=== PATIENT | female | born 1965 | race Caucasian/White ===

== ENCOUNTER 2020-03-06 08:01 | Outpatient (CLI) | payer BC, SELFPAY ==
[2020-03-06 08:32] LABS: Basophils Percent Auto 0.5 % (0.2-1.2); Eosinophils Absolute Auto 0.1 K/mm3 (0-0.3); Eosinophils Percent Auto 2.1 % (0-4.4); Hematocrit 44.4 % (37.0-47.0); Hemoglobin 15.2 g/dL (12.0-15.0); Immature Granulocyte Absolute 0.02 K/mm3 (0.00-0.031); Immature Granulocyte Percent A 0.4 % (0-0.5); Lymphocytes Absolute Auto 1.66 K/mm3 (0.9-3.2); Lymphocytes Percent Auto 29.1 % (18.3-44.2); Mean Corpuscular HGB Conc 34.2 g/dl (32-36); Mean Corpuscular Hemoglobin 29.2 pg (26-34); Mean Corpuscular Volume 85.2 fl (80-100); Mean Platelet Volume 9.7 fl (7.4-10.4); Monocytes Absolute Auto 0.4 K/mm3 (0.1-0.6); Neutrophils Absolute Auto 3.5 K/mm3 (1.3-6.7); Neutrophils Percent Auto 60.9 % (45.5-73.1); Platelet Count Result 184 k/mm3 (150-375); Red Blood Count 5.21 M/mm3 (4.2-5.4); Red Cell Distribution Width 12.1 % (11.5-14.5); White Blood Count 5.7 K/mm3 (4.5-10.0)
[2020-03-06 12:24] LABS: Anion Gap 6 mmol/L (8-16); Blood Urea Nitrogen 11 mg/dL (7-17); Calcium 11.2 mg/dL (8.4-10.2); Carbon Dioxide 25 mmol/L (22-30); Chloride 106 mmol/L (98-107); Cholesterol 200 mg/dL (0-200); Estimated Glomerular Filt Rate > 60; Glucose 124 mg/dL (65-105); HDL Direct 71 mg/dL; Potassium 4.7 mmol/L (3.4-5.0); Sodium 137 mmol/L (137-145); Triglycerides 155 mg/dL (<150)
[2020-03-06 12:35] LABS: LDL Cholesterol Direct 97 mg/dL; Parathyroid Intact 124.7 pg/mL (7.5-53.5)
[2020-03-10 04:06] LABS: Ionized Calcium 6.3 mg/dL (4.8-5.6)
== END 2020-03-06 08:02 | disposition home or self-care (01) ==
LOC: ANHLAB 08:03
PROVIDERS: PCP Family Medicine; Visit Provider Family Medicine
DX: E34.9 Endocrine disorder, unspecified (principal); F41.9 Anxiety disorder, unspecified; Z13.220 Encounter for screening for lipoid disorders
CPT/HCPCS: 36415; 80048; 80061; 82330; 83970; 84443; 85025

== ENCOUNTER 2020-04-02 06:36 | Outpatient (CLI) | payer BC, SELFPAY ==
--- NOTE | ~2020-04-02 | NM_ITS ---
EXAMINATION: NM parathyroid imaging w spect DATE: 04/02/2020 09:39 INDICATION: Unspecified elevated thyroid hormone level TECHNIQUE: 20.3 mCi Tc99m sestamibi (Cardiolite) was administered by intravenous route. Anterior imag es of the neck were obtained at 10 minutes and 2 hours. COMPARISON: 11/09/2017 FINDINGS: There is no focus of persistent activity in the area of the thyroid or mediastinum to suggest parathy roid adenoma. IMPRESSION: 1: Normal study. Reviewed, dictated and finalized at location A. IMPRESSION: 1: Normal study.
== END 2020-04-02 06:37 | disposition home or self-care (01) ==
LOC: ANHIMG 06:38
PROVIDERS: PCP Family Medicine; Visit Provider Family Medicine
DX: E34.9 Endocrine disorder, unspecified (principal); E83.52 Hypercalcemia
CPT/HCPCS: 78071; A9500

== ENCOUNTER 2020-05-08 07:29 | Outpatient (CLI) | payer BC, SELFPAY ==
--- NOTE | ~2020-05-08 | DEXA_ITS ---
Bone Density Report Name: Melissa Gracia Age: 55 Sex: Female Ethnicity: White Date of : 1965 Indication: osteopenia; hyperparathyroidism; parental hip fracture; cancer; hysterectomy; Referring Provider: PHYSICIAN NOT ON STAFF Study: Bone densitometry was performed. Exam Date: May 08, 2020 Accession number: [id number] Bone Density: Region BMD T-score Z-score Classification AP Spine (L1-L4) 0.868 -1.6 -0.6 Osteopenia Femoral Neck (Left) 0.693 -1.4 -0.4 Osteopenia Total Hip (Left) 0.851 -0.7 -0.1 Normal Total Hip Bilateral Avg 0.854 -0.7 -0.1 Normal Femoral Neck (Right) 0.693 -1.4 -0.4 Osteopenia Total Hip (Right) 0.855 -0.7 -0.1 Normal World Health Organization criteria for BMD impression classify patients as: Normal (T-score at or above -1.0), Osteopenia (T-score between -1.0 and -2.5), or Osteoporosis (T-score at or below -2.5). 10-year Fracture Risk(1): Major Osteoporotic Fracture 12% Hip Fracture 0.4% Reported Risk Factors: [place] (), Neck BMD=0.693, BMI=27.9, parental fracture (1) FRAX(R) Version 3.08. Fracture probability calculated for an untreated patient. Fracture probability may be lower if the patient has received treatment. Previous Exams: Region Exam Age BMD T-score BMD Change BMD Change Date g/cm2 vs Baseline vs Previous AP Spine(L1-L4) 05/08/2020 55 0.868 -1.6 0.022(2.6%) 0.022(2.6%) 10/19/2017 52 0.846 -1.8 Total Hip(Left) 05/08/2020 55 0.851 -0.7 0.031(3.8%)* 0.031(3.8%)* 10/19/2017 52 0.820 -1.0 Total Hip(Right) 05/08/2020 55 0.855 -0.7 0.043(5.3%)* 0.043(5.3%)* 10/19/2017 52 0.811 -1.1 *Denotes significance at 95% confidence level, LSC for AP Spine = 0.022 g/cm2, LSC for Total Hip = 0.027 g/cm2 Clinical Information Provided by Patient: Parent has had a hip fracture Has the following medical conditions: Cancer, Hyperparathyroidism, Hysterectomy Patient maximum height was 66 Menopause Age: 35 No regular weight bearing exercise Drinks caffeinated beverages Onset of menses at age 18 Number of children 3 Impression: The patient has low bone mass, based on the Total Spine T-score. The patient has an estimated ten-year risk of hip fracture of 0.4% and an estimated ten-year risk of major fracture of 12%, based on the WHO FRAX algorithm. The patient has risk factors, including: parental hip fracture. No significant bone loss was observed. Discussion: BONE DENSITY I
== END 2020-05-08 07:30 | disposition home or self-care (01) ==
PROVIDERS: PCP Family Medicine
DX: E55.9 Vitamin D deficiency, unspecified (principal)
CPT/HCPCS: 77080

== ENCOUNTER 2020-05-15 09:23 | Outpatient (CLI) | payer BC, SELFPAY ==
[2020-05-15 11:56] LABS: Vitamin D 25 Hydroxy 34.2 ng/mL
== END 2020-05-15 09:24 | disposition home or self-care (01) ==
PROVIDERS: PCP Family Medicine; Visit Provider Internal Medicine Hematology & Oncology
DX: E83.52 Hypercalcemia (principal)
CPT/HCPCS: 36415; 82306; 83519

== ENCOUNTER 2020-08-06 12:07 | Outpatient (CLI) | payer BC, SELFPAY ==
--- NOTE | ~2020-08-06 | XR_ITS ---
EXAMINATION: XR sacrum coccyx min 2V EXAM DATE: 08/06/2020 12:24 INDICATION: Tailbone pain for one month, no known recent injury. TECHNIQUE: Frontal, inlet, lateral projections of the sacrum and coccyx. There is no prior study fo r comparison. FINDINGS: Sacrum, sacroiliac joints, sacral arcuate lines are intact. There are no acute fractures o r dislocations identified. There is no subcutaneous gas. The soft tissue is unremarkable. There a re no radiopaque foreign bodies. There is mild left sacroiliac joint primary osteoarthritis. IMPRESSION: Mild left SI joint osteoarthritis. Reviewed, dictated and finalized at location B. TION SPECIALIST
== END 2020-08-06 12:08 | disposition home or self-care (01) ==
PROVIDERS: PCP Family Medicine; Visit Provider Family Medicine
DX: M53.3 Sacrococcygeal disorders, not elsewhere classified (principal); M47.898 Other spondylosis, sacral and sacrococcygeal region
CPT/HCPCS: 72220

== ENCOUNTER 2021-01-08 08:37 | Outpatient (CLI) | payer BC, SELFPAY ==
[2021-01-08 10:37] LABS: Anion Gap 6 mmol/L (8-16); Blood Urea Nitrogen 16 mg/dL (7-17); Calcium 10.9 mg/dL (8.4-10.2); Carbon Dioxide 27 mmol/L (22-30); Chloride 108 mmol/L (98-107); Estimated Glomerular Filt Rate > 60; Glucose 113 mg/dL (65-105); Potassium 4.6 mmol/L (3.4-5.0); Sodium 141 mmol/L (137-145)
[2021-01-08 10:59] LABS: Parathyroid Intact 129.8 pg/mL (7.5-53.5)
== END 2021-01-08 08:38 | disposition home or self-care (01) ==
LOC: ANHLAB 08:47
PROVIDERS: PCP Family Medicine; Visit Provider Internal Medicine Hematology & Oncology
DX: E21.3 Hyperparathyroidism, unspecified (principal); R53.83 Other fatigue
CPT/HCPCS: 36415; 80048; 82306; 82330; 83970; 84443

== ENCOUNTER 2021-04-09 14:39 | Outpatient (CLI) | payer BC, SELFPAY ==
--- NOTE | 2021-04-09 16:27 | WPDPFTINT ---
PFT Procedure Performed PFT Procedure Performed Plethysmography (Lung Vol) Diffusing Cap (DLCO) Flow Vol Loop Spirometry w/o Bronchodil PFT Interpretation This is a pulmonary function test with spirometry, plethysmography and diffusing capacity. The test was performed and results interpreted in accordance with the 2019 and 2005 ATS/ERS Task Force guidelines respectively using the Global Lung Function Initiative-2012 reference equations. Patient demonstrated good effort and cooperation. Reproducibility criteria were met. The quality of the spirometry maneuver was Grade C. Of note the patient had difficulty with maximal inspiration on on all testing. Findings: Spirometry: There is decreased maximal expiratory airflow at all lung volumes. The contour of the inspiratory flow tracing is incomplete. The FVC 3.07 L, 86% predicted. The FEV1 is 1.62, 57% predicted. The FEV1: FVC ratio is 53%. Plethysmography: The total lung capacity is 4.31 L, 80% predicted. The functional residual capacity is 3.17 L, 104% predicted. The residual volume is 1.25 L, 63% predicted. Diffusing capacity: The absolute diffusion capacity is 15.2, 66% predicted. The diffusing capacity corrected for alveolar volume is 5.46, 123% predicted. Impression: The patient had difficulty with maximal inspiration on all of the testing which limits the interpretation. Interpreting the best available efforts, there is a moderately severe obstructive abnormality. The lung volumes are normal. The absolute diffusing capacity is mildly decreased and normalizes when corrected for alveolar volume. There are no prior studies for comparison
== END 2021-04-09 14:40 | disposition home or self-care (01) ==
LOC: ANHPFT 14:40
PROVIDERS: PCP Family Medicine; Visit Provider Internal Medicine Cardiovascular Disease
DX: U07.1 COVID-19 (principal); R06.00 Dyspnea, unspecified; R07.89 Other chest pain
CPT/HCPCS: 94375; 94726; 94729

== ENCOUNTER 2021-07-16 12:11 | Outpatient (CLI) | payer BC, SELFPAY ==
--- NOTE | ~2021-07-16 | CT_ITS ---
EXAMINATION: CT diagnostic chest w con DATE: 07/16/2021 12:44 INDICATION: Shortness of breath. Covid infection. History of breast cancer TECHNIQUE: Computed tomography (CT) of the chest was performed with 75 cc Omnipaque 350 intravenous c ontrast. The dose-length product was 154.06 mGy-cm. Automated exposure control and iterative reconstr uction technique were employed. COMPARISON: Chest CT dated 06/09/2018 FINDINGS: Heart size is normal. No thoracic lymphadenopathy. No significant pleural or pericardial ef fusion. There are cholecystectomy clips. Fatty infiltration of the liver. There is a small 2-3 mm fis sural nodule on the right, coronal image 43, likely benign. There is a 2 mm right basilar nodule, unc hanged, coronal image 31. No focal airspace consolidation. No pneumothorax. No endobronchial lesions. There is dependent atelectasis. Mild thoracic spondylosis. No focal lytic or blastic lesions. Thyroi d gland is unremarkable. IMPRESSION: 1. No acute cardiopulmonary disease. Reviewed, dictated and finalized at location A. EWATER MANAGER
[2021-07-16 12:28] LABS: Basophils Percent Auto 0.5 % (0.2-1.2); Eosinophils Absolute Auto 0.1 K/mm3 (0-0.3); Eosinophils Percent Auto 2.1 % (0-4.4); Hematocrit 43.6 % (37.0-47.0); Hemoglobin 14.8 g/dL (12.0-15.0); Immature Granulocyte Absolute 0.01 K/mm3 (0.00-0.031); Immature Granulocyte Percent A 0.2 % (0-0.5); Lymphocytes Absolute Auto 1.66 K/mm3 (0.9-3.2); Lymphocytes Percent Auto 28.4 % (18.3-44.2); Mean Corpuscular HGB Conc 33.9 g/dl (32-36); Mean Corpuscular Hemoglobin 29.5 pg (26-34); Mean Platelet Volume 9.6 fl (7.4-10.4); Monocytes Absolute Auto 0.4 K/mm3 (0.1-0.6); Monocytes Percent Auto 6.3 % (2.6-8.5); Neutrophils Absolute Auto 3.7 K/mm3 (1.3-6.7); Neutrophils Percent Auto 62.5 % (45.5-73.1); Platelet Count Result 175 k/mm3 (150-375); Red Blood Count 5.01 M/mm3 (4.2-5.4); Red Cell Distribution Width 12.3 % (11.5-14.5); White Blood Count 5.9 K/mm3 (4.5-10.0)
--- NOTE | 2021-07-16 16:40 | WPDPFTINT ---
PFT Procedure Performed PFT Procedure Performed Spirometry with Pre/Post Bronchodilator Plethysmography (Lung Vol) Diffusing Cap (DLCO) Flow Vol Loop PFT Interpretation This is a pulmonary function test with pre and post-bronchodilator spirometry, plethysmography and diffusing capacity. The test was performed and results interpreted in accordance with the 2019 and 2005 ATS/ERS Task Force guidelines respectively using the Global Lung Function Initiative-2012 reference equations. Patient demonstrated good effort and cooperation. Reproducibility criteria were met. The quality of the pre bronchodilator spirometry maneuver was Grade B and post bronchodilator spirometry maneuver was Grade B. Findings: Spirometry: The contour the inspiratory and expiratory flow tracing are normal. The pre bronchodilator FVC is 2.98 L, 83% predicted. The pre bronchodilator FEV1 is 2.29 L, 81% predicted. The FEV1: FVC ratio 77%. The post bronchodilator FVC is 2.86 L, representing a 4% decrease. The post bronchodilator FEV1 is 2.21 L, representing a 3% decrease. Plethysmography: The total lung capacity is 4.54 L, 84% predicted. The functional residual capacity is 2.56 L, 84% predicted. The residual volume is 1.56 L, 78% predicted. Diffusing capacity: The absolute diffusion capacity 17.0, 74% predicted. The diffusing capacity corrected for alveolar volume is 4.46, 101% predicted. In comparison to prior pulmonary function test on 04/09/2021 the pre bronchodilator FVC is unchanged from 3.07 L to 2.98 L. The pre bronchodilator FEV1 has increased from 1.62 L to 2.29 L. the total lung capacity is unchanged from 4.31 L to 4.54 L. Functional residual capacity is decreased from 3.17 L to 2.56 L. The residual volume has increased from 1.25 L to 1.56 L. The absolute diffusing capacity is unchanged from 15.2 to 17.0. The diffusing capacity corrected for alveolar volume has decreased from 5.46 to 4.46. Impression: The spirometry is normal without evidence of an obstructive abnormality. There is no significant improvement after inhaling a single dose of albuterol. The lung volumes are normal. The diffusing capacity is normal. When compared to the prior pulmonary function test on 04/09/2021 there has been a greater than anticipated time dependent increase in FEV1 and residual volume. there has been a greater than anticipated time dependent decrease in functional residual capacity and the diffusing capacity corrected for alveolar volume with no change in the FVC and the absolute diffusion capacity. Clinical correlation is recommended. There are no prior studies for comparison
== END 2021-07-16 12:12 | disposition home or self-care (01) ==
LOC: ANHIMG 12:14
PROVIDERS: PCP Family Medicine; Visit Provider Internal Medicine Pulmonary Disease
DX: R06.02 Shortness of breath (principal); R06.09 Other forms of dyspnea; R05.9 Cough, unspecified
CPT/HCPCS: 36415; 71260; 85025; 94060; 94726; 94729; Q9967

== ENCOUNTER 2022-08-04 08:25 | Outpatient (CLI) | payer BC, SELFPAY ==
[2022-08-04 09:24] LABS: Hematocrit 46.1 % (37.0-47.0); Hemoglobin 15.5 g/dL (12.0-15.0); Mean Corpuscular HGB Conc 33.6 g/dl (32-36); Mean Corpuscular Hemoglobin 29.6 pg (26-34); Mean Corpuscular Volume 88.1 fl (80-100); Platelet Count Result 171 k/mm3 (150-375); Red Blood Count 5.23 M/mm3 (4.2-5.4); Red Cell Distribution Width 12.3 % (11.5-14.5); White Blood Count 5.4 K/mm3 (4.5-10.0)
[2022-08-04 09:35] LABS: Anion Gap 3 mmol/L (8-16); Blood Urea Nitrogen 16 mg/dL (7-17); Calcium 10.5 mg/dL (8.4-10.2); Carbon Dioxide 26 mmol/L (22-30); Chloride 106 mmol/L (98-107); Cholesterol 218 mg/dL (0-200); Estimated Glomerular Filt Rate > 60; Glucose 123 mg/dL (65-110); HDL Direct 65 mg/dL; Potassium 4.3 mmol/L (3.4-5.0); Sodium 135 mmol/L (137-145); Triglycerides 109 mg/dL (<150)
[2022-08-04 09:45] LABS: LDL Cholesterol Direct 100 mg/dL
[2022-08-04 10:19] LABS: Vitamin D 25 Hydroxy 31.7 ng/mL
[2022-08-07 23:06] LABS: Ionized Calcium 5.6 mg/dL (4.8-5.6)
[2022-08-12 19:18] LABS: Parathyroid Hormone Related Pr 8 pg/mL (11-20)
== END 2022-08-04 08:26 | disposition home or self-care (01) ==
LOC: ANHLAB 08:26
PROVIDERS: Nurse Practitioner Family; PCP Family Medicine; Visit Provider Family Medicine
DX: E34.9 Endocrine disorder, unspecified (principal); L65.9 Nonscarring hair loss, unspecified; Z13.29 Encounter for screening for other suspected endocrine disorder; E55.9 Vitamin D deficiency, unspecified; F41.9 Anxiety disorder, unspecified; Z13.220 Encounter for screening for lipoid disorders
CPT/HCPCS: 36415; 80048; 80061; 82306; 82330; 83519; 84439; 84443; 85027

== ENCOUNTER 2024-01-30 09:14 | Outpatient (CLI) | payer BC, SELFPAY ==
[2024-01-30 09:51] LABS: Hematocrit 43.6 % (37.0-47.0); Mean Corpuscular HGB Conc 34.4 g/dl (32-36); Mean Corpuscular Hemoglobin 29.5 pg (26-34); Mean Corpuscular Volume 85.7 fl (80-100); Mean Platelet Volume 9.8 fl (7.4-10.4); Platelet Count Result 174 k/mm3 (150-375); Red Blood Count 5.09 M/mm3 (4.2-5.4); Red Cell Distribution Width 12.2 % (11.5-14.5); White Blood Count 5.2 K/mm3 (4.5-10.0)
[2024-01-30 10:01] LABS: Alanine Aminotransferase 49 U/L (6-35); Albumin Level 4.2 g/dL (3.5-5.1); Alkaline Phosphatase 81 U/L (38-126); Anion Gap 8 mmol/L (4-12); Aspartate Amino Transferase 30 U/L (14-36); Bilirubin,Total 0.9 mg/dL (0.2-1.3); Blood Urea Nitrogen 19 mg/dL (7-17); Calcium 10.5 mg/dL (8.4-10.2); Carbon Dioxide 24 mmol/L (22-30); Chloride 107 mmol/L (98-107); Cholesterol 201 mg/dL (0-200); Estimated Glomerular Filt Rate > 60; Glucose 130 mg/dL (65-110); HDL Direct 69 mg/dL; Potassium 4.2 mmol/L (3.4-5.0); Sodium 139 mmol/L (137-145); Triglycerides 110 mg/dL (<150)
[2024-01-30 10:12] LABS: Parathyroid Intact 126.3 pg/mL (7.5-53.5)
[2024-01-30 10:13] LABS: LDL Cholesterol Direct 107 mg/dL
[2024-01-31 13:17] LABS: Ionized Calcium 5.5 mg/dL (4.7-5.5)
== END 2024-01-30 09:15 | disposition home or self-care (01) ==
LOC: ANHLAB 09:16
PROVIDERS: PCP Family Medicine; Visit Provider Family Medicine
DX: E34.9 Endocrine disorder, unspecified (principal); E83.52 Hypercalcemia; E78.00 Pure hypercholesterolemia, unspecified; F41.9 Anxiety disorder, unspecified; Z13.220 Encounter for screening for lipoid disorders
CPT/HCPCS: 36415; 80048; 80061; 80076; 82330; 83970; 84443; 85027